=== PATIENT | female | born 1970 | race Caucasian/White ===

== ENCOUNTER 2017-03-04 10:29 | Inpatient (IN) | payer OTHER ==
[~2017-03-04 10:29] MED LIST: BL MAXEPA CAPSU1 CAP PO; CALCIUM + D T1 UDTAB PO; FOLIC ACID PO; IRON1 TA1 PO; MULTIVITAMIN1 CAP PO
[2017-03-04] MEDS ORDERED: KEFLEX500 M4 PO (11:32)
[2017-03-04] MEDS ORDERED: LEVAQUIN750 M1 PO (11:32)
[2017-03-04] MEDS ORDERED: VIBRAMYCIN100 M1 PO (11:33)
[2017-03-04] MEDS ORDERED: HYDROCODON-ACE1 EA16 PO (11:33)
[2017-03-04] MEDS ORDERED: ALEVE220 M3 PO (14:07)
[2017-03-04] MEDS ORDERED: ADVIL200 M2 PO (14:08)
[2017-03-04 17:49] LABS: BASO % 0.1 % (0-2); EOS % 0.3 % (0-7); HCT-HEMATOCRIT 34.2 % (34.0-49.0); LYMPH % 7.3 % (20-45); LYMPH ABSOLUTE COUNT 0.7 tho/cmm (0.8-4.5); MCH (MEAN CORPUSCULAR HGB) 32.3 pg (28.0-32.0); MCHC MEAN CORPUSCULAR HGB CONC 35.1 % (32.0-36.0); MCV (MEAN CELL VOLUME) 91.9 fl (82.0-96.0); MEAN PLATELET VOLUME 9.5 cmc (9.4-12.4); MONO % 1.6 % (0-12); MONOCYTE ABSOLUTE COUNT 0.2 tho/cmm (0.0-1.2); NEUTROPHIL ABSOLUTE COUNT 8.8 tho/cmm (1.6-8.0); NEUTROPHIL-AUTOMATED 8.8 tho/cmm (1.6-8.0); NEUTROPHILS % 89.7 % (40-80); PLATELET COUNT 301 tho/cmm (150-450); RED BLOOD COUNT 3.72 mil/cmm (4.00-5.20); RED CELL DISTRIBUTION WIDTH 12.7 % (12.4-16.4); WHITE BLOOD COUNT 9.8 tho/cmm (4.0-10.0)
[2017-03-04 17:53] LABS: INR 1.2 INR (0.9-1.1)
[2017-03-04 18:00] LABS: ANION GAP 15 mmol/L (0-20); BLOOD UREA NITROGEN 13 mg/dl (6-24); CALCIUM 8.6 mg/dl (8.5-10.5); CARBON DIOXIDE-VENOUS 28 mmol/L (22-32); CHLORIDE 103 mmol/l (96-110); CREATININE 0.74 mg/dl (0.50-1.10); GLUCOSE 174 mg/dL (70-110); POTASSIUM 4.5 mmol/L (3.7-5.1); SODIUM 141 mmol/L (135-145); eGFR VALUE FOR BLACK >90 mL/Min
[2017-03-06 05:42] LABS: CREATININE 0.88 mg/dl (0.50-1.10); eGFR VALUE FOR BLACK >90 mL/Min
[2017-04-11] MEDS ORDERED: NO MEDICATION ×2 (15:08→17:32)
[2017-04-11] MEDS ORDERED: SYNTHROID88 MC1 PO (15:27)
[2017-04-11] MEDS ORDERED: [UNRECOGNIZED DRUG - REMARK] (17:00)
== END 2017-03-07 11:50 | DRG 571 ==
LOC: WCC 10:29 → SHSB 13:27 → SHSA 14:25 → PACU 15:14 → BURN 15:36
PROVIDERS: ADMIT Surgery
PROC: 0JBN0ZZ Excision of Right Lower Leg Subcutaneous Tissue and Fascia, Open Approach (ICD-10-PCS; principal; 2017-03-04)
PROC: 0JBN0ZZ Excision of Right Lower Leg Subcutaneous Tissue and Fascia, Open Approach (ICD-10-PCS; 2017-03-06)
PROC: 05H633Z Insertion of Infusion Device into Left Subclavian Vein, Percutaneous Approach (ICD-10-PCS; 2017-03-06)
DX: L02.415 Cutaneous abscess of right lower limb (principal); I96 Gangrene, not elsewhere classified; L03.115 Cellulitis of right lower limb; B95.61 Methicillin susceptible Staphylococcus aureus infection as the cause of diseases classified elsewhere; Y93.15 Activity, underwater diving and snorkeling; S80.261A Insect bite (nonvenomous), right knee, initial encounter
CPT/HCPCS: C1751; G0463; J2543; J3010; J3370; J7050; J7999